=== PATIENT | male | born 1945 | race American Indian/Alaskan Native ===

== ENCOUNTER 2021-06-28 08:37 | Emergency (ER) | payer MEDICARE, OTHER ==
[~2021-06-28] VITALS: Ht 177.8 cm; Wt 123.0 kg
[~2021-06-28 08:37] MED LIST: ASPIRIN325 MG PO; CIPROFLOXACIN500 MG PO; CLINDAMYCIN HC300 MG PO; DOXYCYCLINE HY100 MG PO; LOSARTAN POTASS50 MG PO; NORCO 5-325 TA1 EACH PO
--- NOTE | 2021-06-30 17:50 | EKG ---
[facility] [address] [facility] [place], [place] [address] Signed Sinus rhythm with frequent premature ventricular complexes and fusion complexes Possible Anterior infarct , age undetermined Abnormal ECG No previous ECGs available Confirmed by TIERNEY LI MD ([id number] on 06/30/2021 5:50:17 PM Electronically Signed By: TIERNEY LI MD 06/30/21 1750 PATIENT NAME: TANI BERGERON JR Electrocardiogram DATE OF : 41 PHYSICIAN: TIERNEY LI MD REPORT #: [id number] REPORT IS CONFIDENTIAL AND NOT TO BE RELEASED WITHOUT AUTHORIZATION
== END 2021-06-28 18:10 | disposition short-term general hospital (02) ==
LOC: ED 08:37
DX: J18.9 Pneumonia, unspecified organism (principal); I11.0 Hypertensive heart disease with heart failure; I50.9 Heart failure, unspecified; N17.9 Acute kidney failure, unspecified; I25.2 Old myocardial infarction; E11.9 Type 2 diabetes mellitus without complications; Z20.822 Contact with and (suspected) exposure to COVID-19
CPT/HCPCS: 36415; 51702; 71045; 80048; 82803; 83605; 83880; 84132; 84484; 85025; 93005; 93010; 94640; 94660; 99285-25; C9803; J0456; J0696; J1940; J2060; J2405; J7060; U0003